=== PATIENT | male | born 1940 | race Caucasian/White ===

== ENCOUNTER 2024-05-05 18:31 | Inpatient (IN) | payer MEDICARE, BC ==
[~2024-05-05] VITALS: Ht 172.7 cm; Wt 74.8 kg
[2024-05-05 19:00] VITALS: O2SAT 95
[2024-05-05] MEDS: IPRATROPIUM BROMIDE 0.5 MG/2.5 ML NEBU NEB ONE (19:00)
[2024-05-05] MEDS: ALBUTEROL SULFATE 2.5 MG/3 ML NEBU NEB ONE (19:00)
[2024-05-05] MEDS ORDERED: methylPREDNISolone SOD SUCC 125 MG/2 ML VIAL ONE (19:05)
[2024-05-05 19:12] VITALS: O2SAT 95
[2024-05-05] MEDS: methylPREDNISolone SOD SUCC 125 MG/2 ML VIAL IV ONE (19:12)
[2024-05-05] MEDS ORDERED: IPRATROPIUM BROMIDE 0.5 MG/2.5 ML NEBU ONE (19:12)
[2024-05-05] MEDS ORDERED: ALBUTEROL SULFATE 2.5 MG/3 ML NEBU ONE (19:12)
[2024-05-05] MEDS ORDERED: levoFLOXacin 750MG/D5W 150 ML IV ONE (19:13)
[2024-05-05] MEDS: levoFLOXacin 750 MG/D5W 150 ML PIGGYBACK IV ONE (19:17)
[2024-05-05] MEDS ORDERED: AMIO200T5 PO (19:18)
[2024-05-05] MEDS ORDERED: PANT40TA49 PO (19:18)
[2024-05-05] MEDS ORDERED: ALLO300T2 PO (19:18)
[2024-05-05] MEDS ORDERED: FENO150C4 PO (19:18)
[2024-05-05] MEDS ORDERED: AMLO5TAB4 PO (19:18)
[2024-05-05] MEDS ORDERED: PREG50CA PO (19:18)
[2024-05-05] MEDS ORDERED: ESCI20TA PO (19:18)
[2024-05-05] MEDS ORDERED: TAMS-3 PO (19:18)
[2024-05-05] MEDS ORDERED: LEVO150T8 PO (19:18)
[2024-05-05] MEDS ORDERED: NIFE20CA8 PO (19:18)
[2024-05-05] MEDS ORDERED: METH10TA4 PO (19:18)
[2024-05-05] MEDS ORDERED: GLIP5TAB13 PO (19:18)
[2024-05-05] MEDS ORDERED: [UNRECOGNIZED DRUG - CODE] PO (19:18)
[2024-05-05 19:25] VITALS: O2SAT 95
[2024-05-05 19:29] LABS: BASOPHILS % (AUTO) 0.2 % (0.0-2.0); DIFFERENTIAL COMMENT 0; EOSINOPHILS % (AUTO) 0.4 % (0.0-7.0); HEMATOCRIT 36.7 % (36.7-47.1); LYMPHOCYTES # (AUTO) 0.4 K/uL (0.8-4.8); LYMPHOCYTES % (AUTO) 5.6 % (20.5-51.5); MEAN CORPUSCULAR HEMOGLOBIN 33.7 uug (23.8-33.4); MEAN CORPUSCULAR HGB CONC 33 g/dL (32.5-36.3); MEAN CORPUSCULAR VOLUME 103.1 fL (73.0-96.2); MONOCYTES # (AUTO) 0.3 K/uL (0.1-1.30); MONOCYTES % (AUTO) 3.6 % (0.0-11.0); NEUTROPHILS # (AUTO) 6.6 K/uL (1.8-8.9); NEUTROPHILS % (AUTO) 90.2 % (38.5-71.5); PLATELET COUNT (AUTO) 238 K/uL (152-348); RED BLOOD CELL COUNT(AUTO) 3.56 MIL/uL (4.06-5.63); RED CELL DISTRIBUTION WIDTH 16.2 % (12.1-16.2); WHITE BLOOD COUNT (AUTO) 7.4 K/uL (3.6-10.2)
[2024-05-05 19:37] LABS: CALCIUM 8.8 mg/dL (8.5-10.1); CARBON DIOXIDE 29 mmol/L (21-32); CHLORIDE 108 mmol/L (98-107); CREATININE 2.3 mg/dL (0.6-1.3); GLUCOSE 94 mg/dL (74-106); POTASSIUM 3.5 mmol/L (3.5-5.1); SODIUM SERUM 146 mmol/L (136-145); UREA NITROGEN, BLOOD 45 mg/dL (7-18)
[2024-05-05 19:47] LABS: ABG BASE EXCESS -2.3 mmol/L (-2.0-3.0); ABG HCO3 20.7 mmol/L (21.0-28.0); ABG PH 7.457 (7.350-7.450); ABG SITE LEFT RADIAL; ABG TOTAL HEMOGLOBIN 11.5 G/dL (13.5-17.5); AaDO2 95.7 mmHg; COHb 0.9 % (0.5-1.5); MetHb 0.3 % (0.0-1.5); O2Hb 93.1 % (94.0-98.0)
[2024-05-05 19:51] LABS: ALANINE AMINOTRANSFERASE 54 U/L (16-63); ALBUMIN 2.4 g/dL (3.4-5.0); ALKALINE PHOSPHATASE 52 U/L (50-136); ASPARTATE AMINOTRANSFERASE 91 U/L (15-37); BILIRUBIN,DIRECT 0.3 mg/dL (0.0-0.2); BILIRUBIN,TOTAL 0.6 mg/dL (0.2-1.0)
[2024-05-05 20:17] LABS: NT-PRO BNP 45449 pg/mL (0-125)
[2024-05-05 20:36] LABS: BAND % (MANUAL) 7 % (0-10); LYMPHOCYTES % (MANUAL) 2 % (20-40); MONOCYTES % (MANUAL) 2 % (2-10); NEUTROPHILS % (MANUAL) 89 % (42-75)
[2024-05-05 20:37] LABS: ANISOCYTOSIS 1+; PLATELET ESTIMATE ADEQU; TEAR DROP CELLS OCC
[2024-05-05] MEDS ORDERED: ENOXAPARIN SODIUM 80 MG/0.8 ML DISP.SYRIN SQ ONE (20:42)
[2024-05-05] MEDS ORDERED: NITROGLYCERIN OINT 1 GM PACKET TP ONE (20:42)
[2024-05-05] MEDS ORDERED: ASPIRIN 81 MG TAB.CHEW ONE (20:42)
[2024-05-05] MEDS: ASPIRIN 81 MG TAB.CHEW PO ONE (20:55)
[2024-05-05] MEDS: NITROGLYCERIN OINT 1 GM PACKET TP ONE (20:55)
[2024-05-05] MEDS: ENOXAPARIN SODIUM 80 MG/0.8 ML DISP.SYRIN SQ ONE (20:55)
[2024-05-05] MEDS ORDERED: MAGNESIUM HYDROXIDE 30 ML LIQUID UDC PO PRN (21:15)
[2024-05-05] MEDS ORDERED: ONDANSETRON 4 MG/2 ML VIAL IV PRN (21:15)
[2024-05-05] MEDS ORDERED: HEPARIN/D5W DRIP 500 ML IV PRN (21:15)
[2024-05-05] MEDS ORDERED: DEXTROSE 50% 50 ML DISP.SYRIN IV PRN (21:15)
[2024-05-05] MEDS ORDERED: IPRATROPIUM BROMIDE 0.5 MG/2.5 ML NEBU NEB PRN (21:45)
[2024-05-05] MEDS ORDERED: ALBUTEROL SULFATE 1.25 MG/3 ML NEBU NEB PRN (21:45)
[2024-05-05] MEDS ORDERED: METHYLPHENIDATE HCL 10 MG TABLET PO PRN (22:30)
[2024-05-05] MEDS: FUROSEMIDE 40 MG/4 ML VIAL IV ONE (23:45)
[2024-05-06] VITALS (26 sets, daily range): BP systolic 94–145; BP diastolic 60–97; TEMP 97.4–98.7; O2SAT 89–98
[2024-05-06] MEDS ORDERED: FUROSEMIDE 40 MG/4 ML VIAL IV SCH (02:30)
[2024-05-06] MEDS: FUROSEMIDE 40 MG/4 ML VIAL IV ONE (03:53)
[2024-05-06] MEDS ORDERED: LEVOTHYROXINE SODIUM 150 MCG TABLET PO SCH ×3 (07:00→09:00)
[2024-05-06 07:49] LABS: BASOPHILS % (AUTO) 0.2 % (0.0-2.0); DIFFERENTIAL COMMENT 0; HEMATOCRIT 33.9 % (36.7-47.1); HEMOGLOBIN 11.4 g/dL (12.5-16.3); LYMPHOCYTES # (AUTO) 0.3 K/uL (0.8-4.8); LYMPHOCYTES % (AUTO) 4.9 % (20.5-51.5); MEAN CORPUSCULAR HEMOGLOBIN 34.2 uug (23.8-33.4); MEAN CORPUSCULAR HGB CONC 34 g/dL (32.5-36.3); MEAN CORPUSCULAR VOLUME 101.5 fL (73.0-96.2); MONOCYTES # (AUTO) 0.1 K/uL (0.1-1.30); MONOCYTES % (AUTO) 1.5 % (0.0-11.0); NEUTROPHILS # (AUTO) 6.3 K/uL (1.8-8.9); NEUTROPHILS % (AUTO) 93.4 % (38.5-71.5); PLATELET COUNT (AUTO) 223 K/uL (152-348); RED BLOOD CELL COUNT(AUTO) 3.34 MIL/uL (4.06-5.63); RED CELL DISTRIBUTION WIDTH 15.8 % (12.1-16.2); WHITE BLOOD COUNT (AUTO) 6.7 K/uL (3.6-10.2)
[2024-05-06 08:01] LABS: MAGNESIUM 2.5 mg/dL (1.8-2.4); PHOSPHOROUS 4.8 mg/dL (2.5-4.9)
[2024-05-06 08:03] LABS: CALCIUM 8.8 mg/dL (8.5-10.1); CARBON DIOXIDE 30 mmol/L (21-32); CHLORIDE 112 mmol/L (98-107); CREATININE 2.2 mg/dL (0.6-1.3); POTASSIUM 4.5 mmol/L (3.5-5.1); SODIUM SERUM 150 mmol/L (136-145); UREA NITROGEN, BLOOD 49 mg/dL (7-18)
[2024-05-06 08:06] LABS: GLUCOSE 40 mg/dL (74-106)
[2024-05-06] MEDS ORDERED: ALLOPURINOL 300 MG TABLET PO SCH (09:00)
[2024-05-06] MEDS ORDERED: FENOFIBRATE 150 MG PO SCH (09:00)
[2024-05-06] MEDS ORDERED: HEPARIN/D5W DRIP 500 ML IV PRN (09:00)
[2024-05-06] MEDS: AMLODIPINE 5 MG TABLET PO SCH (09:08)
[2024-05-06] MEDS: ESCITALOPRAM OXALATE 10 MG TABLET PO SCH (09:08)
[2024-05-06] MEDS: PANTOPRAZOLE SODIUM 40 MG VIAL IV SCH (09:08)
[2024-05-06] MEDS: AMIODARONE HCL 200 MG TABLET PO SCH (09:08)
[2024-05-06] MEDS: BLOOD SUGAR DIAGNOSTIC 1 EACH STRIP VI SCH (09:26)
[2024-05-06] MEDS: DEXAMETHASONE SOD PHOSPHATE 4 MG INJ IV SCH (09:26)
[2024-05-06] MEDS: ACETAMINOPHEN 325 MG TABLET PO PRN (10:16)
[2024-05-06 11:08] LABS: BAND % (MANUAL) 6 % (0-10); LYMPHOCYTES % (MANUAL) 11 % (20-40); METAMYELOCYTES % 1 % (0-1); MONOCYTES % (MANUAL) 2 % (2-10); NEUTROPHILS % (MANUAL) 80 % (42-75)
[2024-05-06 11:09] LABS: ANISOCYTOSIS 1+; PLATELET ESTIMATE ADEQUATE
[2024-05-06] MEDS ORDERED: FENO145T21 PO (12:06)
[2024-05-06] MEDS ORDERED: LEVO200T9 PO (12:06)
[2024-05-06] MEDS ORDERED: LIDO30AD10 TD (12:10)
[2024-05-06] MEDS: PREGABALIN 25 MG CAPSULE PO SCH (17:49)
[2024-05-06] MEDS ORDERED: levoFLOXacin 750MG/D5W 750 MG in PREMIXED 1 EACH IV SCH (20:00)
[2024-05-06] MEDS: CEFTRIAXONE 1 G in IV DEXTROSE 5% 50 ML IV SCH (20:08)
[2024-05-06] MEDS: TAMSULOSIN HCL 0.4 MG CAP.SR.24H PO SCH (21:42)
[2024-05-06] MEDS: DOXYCYCLINE HYCLATE IV 100 MG in IV DEXTROSE 5% 100 ML IV SCH (21:42)
[2024-05-06] MEDS: INSULIN REGULAR, HUMAN 1000 UNIT/10 ML VIAL SQ PRN (21:52)
[2024-05-07] VITALS (28 sets, daily range): BP systolic 93–143; BP diastolic 59–116; TEMP 97.7–98.4; O2SAT 83–98
[2024-05-07 05:11] LABS: BASOPHILS # (AUTO) 0.1 K/UL (0.0-0.2); BASOPHILS % (AUTO) 0.7 % (0.0-2.0); HEMATOCRIT 33.1 % (36.7-47.1); HEMOGLOBIN 11.1 g/dL (12.5-16.3); LYMPHOCYTES # (AUTO) 0.5 K/uL (0.8-4.8); LYMPHOCYTES % (AUTO) 6.7 % (20.5-51.5); MEAN CORPUSCULAR HEMOGLOBIN 33.6 uug (23.8-33.4); MEAN CORPUSCULAR HGB CONC 33 g/dL (32.5-36.3); MEAN CORPUSCULAR VOLUME 100.5 fL (73.0-96.2); MONOCYTES # (AUTO) 0.2 K/uL (0.1-1.30); MONOCYTES % (AUTO) 3.2 % (0.0-11.0); NEUTROPHILS # (AUTO) 6.6 K/uL (1.8-8.9); NEUTROPHILS % (AUTO) 89.4 % (38.5-71.5); PLATELET COUNT (AUTO) 221 K/uL (152-348); RED BLOOD CELL COUNT(AUTO) 3.29 MIL/uL (4.06-5.63); RED CELL DISTRIBUTION WIDTH 15.5 % (12.1-16.2); WHITE BLOOD COUNT (AUTO) 7.4 K/uL (3.6-10.2)
[2024-05-07 05:28] LABS: ALANINE AMINOTRANSFERASE 44 U/L (16-63); ALBUMIN 2.1 g/dL (3.4-5.0); ALKALINE PHOSPHATASE 41 U/L (50-136); ASPARTATE AMINOTRANSFERASE 53 U/L (15-37); BILIRUBIN,DIRECT 0.2 mg/dL (0.0-0.2); BILIRUBIN,TOTAL 0.4 mg/dL (0.2-1.0); CALCIUM 7.8 mg/dL (8.5-10.1); CARBON DIOXIDE 26 mmol/L (21-32); CHLORIDE 108 mmol/L (98-107); CHOLESTEROL 130 mg/dL (<200); CREATININE 2.1 mg/dL (0.6-1.3); GLUCOSE 173 mg/dL (74-106); HDL CHOLESTEROL 30 mg/dL (40-60); MAGNESIUM 2.5 mg/dL (1.8-2.4); PHOSPHOROUS 3.7 mg/dL (2.5-4.9); POTASSIUM 4.2 mmol/L (3.5-5.1); SODIUM SERUM 144 mmol/L (136-145); TOTAL PROTEIN, SERUM 5.3 g/dL (6.4-8.2); TRIGLYCERIDES 167 MG/DL (30-150); UREA NITROGEN, BLOOD 51 mg/dL (7-18)
[2024-05-07 07:02] LABS: THYROID STIMULATING HORMONE 0.548 mIU/mL (0.358-3.740)
[2024-05-07] MEDS: LEVOTHYROXINE SODIUM 200 MCG TABLET PO SCH (07:10)
[2024-05-07 08:15] LABS: CREATINE KINASE, TOTAL < 7 U/L (39-308)
[2024-05-07] MEDS: ASPIRIN 81 MG TAB.CHEW PO SCH (09:37)
[2024-05-07] MEDS: FENOFIBRATE NANOCRYSTALLIZED 145 MG TABLET PO SCH (09:38)
[2024-05-07] MEDS: ALBUTEROL SULFATE 1.25 MG/3 ML NEBU NEB SCH (13:13)
[2024-05-07] MEDS: IPRATROPIUM BROMIDE 0.5 MG/2.5 ML NEBU NEB SCH (13:13)
[2024-05-07] MEDS: ACETYLCYSTEINE 20% 800 MG/4 ML VIAL NEB SCH (15:28)
[2024-05-07] MEDS: IV 1/2NS 1000 ML 1,000 ML IV PRN (15:46)
[2024-05-07] MEDS ORDERED: levoFLOXacin 750 MG/D5W 150 ML PIGGYBACK IV SCH (21:00)
[2024-05-07 21:23] LABS: *BILIRUBIN,URIN NEGATIVE (NEGATIVE); *BLOOD, URINE 2+ (NEGATIVE); *CLARITY,URINE CLEAR (CLEAR); *COLOR,URINE YELLOW (YELLOW); *KETONES,URINE TRACE (NEGATIVE); *PROTEIN,URINE 1+ (NEGATIVE); *UROBILINOGEN,URINE 0.2 E.U./dl (NORMAL); LEUKOCYTE ESTERASE ,URINE NEGATIVE (NEGATIVE); NITRITE, URINE NEGATIVE (NEGATIVE); UGLUCOSE 2+ (NEGATIVE)
[2024-05-07 21:35] LABS: *CREATININE,URINE 79.7 mg/dL (30-125); *URINE TOTAL PROTEIN RANDOM 53.4 mg/dL (<150/24HR)
[2024-05-07 21:48] LABS: BACTERIA,URINE FEW /HPF (NONE SEEN); SQUAMOUS EPITHELIAL CELL,UR FEW /HPF (NONE SEEN); WBC,URINE 0-3 /HPF (0-3)
[2024-05-07] MEDS: CLONAZEPAM 0.5 MG TABLET PO PRN (22:43)
[2024-05-07] MEDS: MIRALAX 17 GM POWD.PACK PO PRN (23:01)
[2024-05-08] VITALS (21 sets, daily range): BP systolic 98–124; BP diastolic 70–84; TEMP 97.6–98.1; O2SAT 95–98
[2024-05-08 05:18] LABS: BASOPHILS % (AUTO) 0.4 % (0.0-2.0); HEMATOCRIT 32.2 % (36.7-47.1); HEMOGLOBIN 10.9 g/dL (12.5-16.3); LYMPHOCYTES # (AUTO) 0.5 K/uL (0.8-4.8); LYMPHOCYTES % (AUTO) 6.1 % (20.5-51.5); MEAN CORPUSCULAR HGB CONC 34 g/dL (32.5-36.3); MEAN CORPUSCULAR VOLUME 100.6 fL (73.0-96.2); MONOCYTES # (AUTO) 0.2 K/uL (0.1-1.30); NEUTROPHILS # (AUTO) 6.9 K/uL (1.8-8.9); NEUTROPHILS % (AUTO) 90.5 % (38.5-71.5); PLATELET COUNT (AUTO) 218 K/uL (152-348); RED CELL DISTRIBUTION WIDTH 15.9 % (12.1-16.2); WHITE BLOOD COUNT (AUTO) 7.6 K/uL (3.6-10.2)
[2024-05-08 05:26] LABS: DIFFERENTIAL COMMENT 1
[2024-05-08 05:52] LABS: ALANINE AMINOTRANSFERASE 40 U/L (16-63); ALKALINE PHOSPHATASE 39 U/L (50-136); ASPARTATE AMINOTRANSFERASE 38 U/L (15-37); BILIRUBIN,TOTAL 0.4 mg/dL (0.2-1.0); CALCIUM 7.9 mg/dL (8.5-10.1); CARBON DIOXIDE 26 mmol/L (21-32); CHLORIDE 107 mmol/L (98-107); CREATININE 1.9 mg/dL (0.6-1.3); GLUCOSE 162 mg/dL (74-106); MAGNESIUM 2.7 mg/dL (1.8-2.4); PHOSPHOROUS 2.9 mg/dL (2.5-4.9); SODIUM SERUM 142 mmol/L (136-145); THYROID STIMULATING HORMONE 0.462 mIU/mL (0.358-3.740); TOTAL PROTEIN, SERUM 5.1 g/dL (6.4-8.2); UREA NITROGEN, BLOOD 48 mg/dL (7-18)
[2024-05-08] MEDS: PANTOPRAZOLE SODIUM 40 MG TABLET.DR PO SCH (07:07)
[2024-05-08 09:10] LABS: PTH, INTACT 79 pg/mL (15-65)
[2024-05-09] VITALS (17 sets, daily range): BP systolic 113–133; BP diastolic 60–84; TEMP 97–98.3; O2SAT 9–99
[2024-05-09 07:37] LABS: BASOPHILS % (AUTO) 0.2 % (0.0-2.0); HEMATOCRIT 34.3 % (36.7-47.1); HEMOGLOBIN 11.5 g/dL (12.5-16.3); LYMPHOCYTES # (AUTO) 0.6 K/uL (0.8-4.8); LYMPHOCYTES % (AUTO) 6.4 % (20.5-51.5); MEAN CORPUSCULAR HGB CONC 34 g/dL (32.5-36.3); MEAN CORPUSCULAR VOLUME 101.1 fL (73.0-96.2); MONOCYTES # (AUTO) 0.3 K/uL (0.1-1.30); NEUTROPHILS # (AUTO) 8.4 K/uL (1.8-8.9); NEUTROPHILS % (AUTO) 90.4 % (38.5-71.5); PLATELET COUNT (AUTO) 219 K/uL (152-348); RED BLOOD CELL COUNT(AUTO) 3.39 MIL/uL (4.06-5.63); RED CELL DISTRIBUTION WIDTH 15.5 % (12.1-16.2); WHITE BLOOD COUNT (AUTO) 9.3 K/uL (3.6-10.2)
[2024-05-09 07:51] LABS: DIFFERENTIAL COMMENT 1
[2024-05-09 08:02] LABS: CALCIUM 7.7 mg/dL (8.5-10.1); CARBON DIOXIDE 25 mmol/L (21-32); CHLORIDE 106 mmol/L (98-107); CREATININE 1.5 mg/dL (0.6-1.3); GLUCOSE 118 mg/dL (74-106); MAGNESIUM 2.4 mg/dL (1.8-2.4); PHOSPHOROUS 2.5 mg/dL (2.5-4.9); POTASSIUM 4.1 mmol/L (3.5-5.1); SODIUM SERUM 140 mmol/L (136-145); UREA NITROGEN, BLOOD 44 mg/dL (7-18)
[2024-05-09] MEDS: BENZONATATE 100 MG CAPSULE PO SCH (17:07)
[2024-05-10] VITALS (18 sets, daily range): BP systolic 108–148; BP diastolic 66–81; TEMP 96.7–98; O2SAT 90–97
[2024-05-10 07:05] LABS: BASOPHILS % (AUTO) 0.3 % (0.0-2.0); EOSINOPHILS % (AUTO) 0.1 % (0.0-7.0); HEMATOCRIT 35.1 % (36.7-47.1); HEMOGLOBIN 11.8 g/dL (12.5-16.3); LYMPHOCYTES # (AUTO) 0.8 K/uL (0.8-4.8); LYMPHOCYTES % (AUTO) 6.2 % (20.5-51.5); MEAN CORPUSCULAR HEMOGLOBIN 33.6 uug (23.8-33.4); MEAN CORPUSCULAR HGB CONC 34 g/dL (32.5-36.3); MEAN CORPUSCULAR VOLUME 100.3 fL (73.0-96.2); MONOCYTES # (AUTO) 0.4 K/uL (0.1-1.30); MONOCYTES % (AUTO) 3.2 % (0.0-11.0); NEUTROPHILS # (AUTO) 11.6 K/uL (1.8-8.9); NEUTROPHILS % (AUTO) 90.2 % (38.5-71.5); PLATELET COUNT (AUTO) 253 K/uL (152-348); RED BLOOD CELL COUNT(AUTO) 3.51 MIL/uL (4.06-5.63); WHITE BLOOD COUNT (AUTO) 12.9 K/uL (3.6-10.2)
[2024-05-10 07:23] LABS: DIFFERENTIAL COMMENT 1
[2024-05-10 07:26] LABS: CALCIUM 7.7 mg/dL (8.5-10.1); CARBON DIOXIDE 25 mmol/L (21-32); CHLORIDE 105 mmol/L (98-107); CREATININE 1.6 mg/dL (0.6-1.3); GLUCOSE 126 mg/dL (74-106); MAGNESIUM 2.8 mg/dL (1.8-2.4); PHOSPHOROUS 2.5 mg/dL (2.5-4.9); POTASSIUM 4.3 mmol/L (3.5-5.1); SODIUM SERUM 138 mmol/L (136-145); UREA NITROGEN, BLOOD 42 mg/dL (7-18)
[2024-05-10 13:07] LABS: LYMPHOCYTES % (MANUAL) 6 % (20-40); NEUTROPHILS % (MANUAL) 90 % (42-75)
[2024-05-10 13:08] LABS: EOSINOPHILS % (MANUAL) 1 % (0-8); MONOCYTES % (MANUAL) 3 % (2-10); PLATELET ESTIMATE ADEQUATE
[2024-05-11] VITALS (13 sets, daily range): TEMP 97–97.8; O2SAT 93–98
[2024-05-11 07:15] LABS: BASOPHILS # (AUTO) 0.1 K/UL (0.0-0.2); BASOPHILS % (AUTO) 0.5 % (0.0-2.0); EOSINOPHILS % (AUTO) 0.1 % (0.0-7.0); HEMATOCRIT 37.4 % (36.7-47.1); HEMOGLOBIN 12.4 g/dL (12.5-16.3); LYMPHOCYTES # (AUTO) 0.7 K/uL (0.8-4.8); LYMPHOCYTES % (AUTO) 6.7 % (20.5-51.5); MEAN CORPUSCULAR HEMOGLOBIN 33.1 uug (23.8-33.4); MEAN CORPUSCULAR HGB CONC 33 g/dL (32.5-36.3); MEAN CORPUSCULAR VOLUME 99.9 fL (73.0-96.2); MONOCYTES # (AUTO) 0.4 K/uL (0.1-1.30); MONOCYTES % (AUTO) 3.4 % (0.0-11.0); NEUTROPHILS # (AUTO) 9.9 K/uL (1.8-8.9); NEUTROPHILS % (AUTO) 89.3 % (38.5-71.5); PLATELET COUNT (AUTO) 259 K/uL (152-348); RED BLOOD CELL COUNT(AUTO) 3.74 MIL/uL (4.06-5.63); WHITE BLOOD COUNT (AUTO) 11.1 K/uL (3.6-10.2)
[2024-05-11 07:32] LABS: CALCIUM 7.6 mg/dL (8.5-10.1); CARBON DIOXIDE 24 mmol/L (21-32); CHLORIDE 107 mmol/L (98-107); CREATININE 1.4 mg/dL (0.6-1.3); GLUCOSE 106 mg/dL (74-106); MAGNESIUM 2.7 mg/dL (1.8-2.4); PHOSPHOROUS 2.4 mg/dL (2.5-4.9); POTASSIUM 4.3 mmol/L (3.5-5.1); SODIUM SERUM 140 mmol/L (136-145); UREA NITROGEN, BLOOD 38 mg/dL (7-18)
[2024-05-11 07:39] LABS: DIFFERENTIAL COMMENT 1
[2024-05-11] MEDS: FUROSEMIDE 20 MG/2 ML VIAL IV SCH (09:29)
[2024-05-11] MEDS: REMDESIVIR (CHARGED) 200 MG in IV NORMAL SALINE 210 ML IV ONE (09:30)
[2024-05-11 14:12] LABS: A/G RATIO 0.9 (0.7-1.7); ALBUMIN 2.2 g/dL (2.9-4.4); ALPHA-1-GLOBULIN 0.3 g/dL (0.0-0.4); BETA GLOBULIN 0.8 g/dL (0.7-1.3); GAMMA GLOBULIN 0.4 g/dL (0.4-1.8); GLOBULIN, TOTAL 2.5 g/dL (2.2-3.9); M-SPIKE Not Observed g/dL (Not Observed); PROTEIN, TOTAL 4.7 g/dL (6.0-8.5)
[2024-05-11] MEDS: NEUTRA PHOS PACKET PO ONE (17:02)
[2024-05-12] VITALS (14 sets, daily range): BP systolic 112–123; BP diastolic 66–76; TEMP 97.5–97.9; O2SAT 50–99
[2024-05-12 07:16] LABS: BASOPHILS % (AUTO) 0.5 % (0.0-2.0); EOSINOPHILS % (AUTO) 0.1 % (0.0-7.0); HEMATOCRIT 35.5 % (36.7-47.1); HEMOGLOBIN 12.1 g/dL (12.5-16.3); LYMPHOCYTES # (AUTO) 0.7 K/uL (0.8-4.8); LYMPHOCYTES % (AUTO) 7.1 % (20.5-51.5); MEAN CORPUSCULAR HGB CONC 34 g/dL (32.5-36.3); MEAN CORPUSCULAR VOLUME 99.8 fL (73.0-96.2); MONOCYTES # (AUTO) 0.3 K/uL (0.1-1.30); MONOCYTES % (AUTO) 3.5 % (0.0-11.0); NEUTROPHILS # (AUTO) 8.3 K/uL (1.8-8.9); NEUTROPHILS % (AUTO) 88.8 % (38.5-71.5); PLATELET COUNT (AUTO) 250 K/uL (152-348); RED BLOOD CELL COUNT(AUTO) 3.56 MIL/uL (4.06-5.63); RED CELL DISTRIBUTION WIDTH 15.8 % (12.1-16.2); WHITE BLOOD COUNT (AUTO) 9.4 K/uL (3.6-10.2)
[2024-05-12 07:29] LABS: CALCIUM 7.1 mg/dL (8.5-10.1); CARBON DIOXIDE 29 mmol/L (21-32); CHLORIDE 109 mmol/L (98-107); CREATININE 1.4 mg/dL (0.6-1.3); GLUCOSE 78 mg/dL (74-106); MAGNESIUM 2.3 mg/dL (1.8-2.4); PHOSPHOROUS 3.3 mg/dL (2.5-4.9); SODIUM SERUM 143 mmol/L (136-145); UREA NITROGEN, BLOOD 37 mg/dL (7-18)
[2024-05-12 07:33] LABS: DIFFERENTIAL COMMENT 1
[2024-05-12] MEDS: REMDESIVIR (CHARGED) 100 MG in IV NORMAL SALINE 100 ML IV SCH (09:17)
[2024-05-12] MEDS: FUROSEMIDE 20 MG/2 ML VIAL IV SCH (10:20)
[2024-05-12 12:40] LABS: ANISOCYTOSIS 1+; BAND % (MANUAL) 2 % (0-10); LYMPHOCYTES % (MANUAL) 4 % (20-40); MONOCYTES % (MANUAL) 3 % (2-10); NEUTROPHILS % (MANUAL) 91 % (42-75); PLATELET ESTIMATE ADEQUATE
[2024-05-12] MEDS ORDERED: GUAIFENESIN/DEXTROMETHORPHAN 5 ML UDC PO PRN (19:15)
[2024-05-13] VITALS (19 sets, daily range): BP systolic 107–125; BP diastolic 65–79; TEMP 97.7–98.5; O2SAT 93–100
[2024-05-13 07:07] LABS: BASOPHILS % (AUTO) 0.3 % (0.0-2.0); EOSINOPHILS % (AUTO) 0.1 % (0.0-7.0); HEMATOCRIT 37.3 % (36.7-47.1); HEMOGLOBIN 12.8 g/dL (12.5-16.3); LYMPHOCYTES # (AUTO) 0.6 K/uL (0.8-4.8); LYMPHOCYTES % (AUTO) 6.3 % (20.5-51.5); MEAN CORPUSCULAR HEMOGLOBIN 34.4 uug (23.8-33.4); MEAN CORPUSCULAR HGB CONC 34 g/dL (32.5-36.3); MEAN CORPUSCULAR VOLUME 100.6 fL (73.0-96.2); MONOCYTES # (AUTO) 0.3 K/uL (0.1-1.30); NEUTROPHILS # (AUTO) 9.1 K/uL (1.8-8.9); NEUTROPHILS % (AUTO) 90.3 % (38.5-71.5); PLATELET COUNT (AUTO) 283 K/uL (152-348); RED BLOOD CELL COUNT(AUTO) 3.71 MIL/uL (4.06-5.63); RED CELL DISTRIBUTION WIDTH 15.8 % (12.1-16.2)
[2024-05-13 07:21] LABS: DIFFERENTIAL COMMENT 1
[2024-05-13 07:37] LABS: ALANINE AMINOTRANSFERASE 40 U/L (16-63); ALBUMIN 2.2 g/dL (3.4-5.0); ALKALINE PHOSPHATASE 54 U/L (50-136); ASPARTATE AMINOTRANSFERASE 30 U/L (15-37); BILIRUBIN,DIRECT 0.2 mg/dL (0.0-0.2); BILIRUBIN,TOTAL 0.5 mg/dL (0.2-1.0); CALCIUM 7.2 mg/dL (8.5-10.1); CARBON DIOXIDE 28 mmol/L (21-32); CHLORIDE 107 mmol/L (98-107); CREATININE 1.4 mg/dL (0.6-1.3); GLUCOSE 126 mg/dL (74-106); SODIUM SERUM 144 mmol/L (136-145); TOTAL PROTEIN, SERUM 5.4 g/dL (6.4-8.2); UREA NITROGEN, BLOOD 40 mg/dL (7-18)
[2024-05-13 07:38] LABS: POTASSIUM 4.5 mmol/L (3.5-5.1)
[2024-05-13] MEDS: DOXYCYCLINE HYCLATE 100 MG TABLET PO SCH (21:10)
[2024-05-14] VITALS (20 sets, daily range): BP systolic 100–134; BP diastolic 61–76; TEMP 97.6–98.4; O2SAT 90–100
[2024-05-14 06:51] LABS: BASOPHILS % (AUTO) 0.1 % (0.0-2.0); EOSINOPHILS % (AUTO) 0.1 % (0.0-7.0); HEMATOCRIT 36.6 % (36.7-47.1); HEMOGLOBIN 12.4 g/dL (12.5-16.3); LYMPHOCYTES # (AUTO) 0.6 K/uL (0.8-4.8); LYMPHOCYTES % (AUTO) 6.3 % (20.5-51.5); MEAN CORPUSCULAR HEMOGLOBIN 33.9 uug (23.8-33.4); MEAN CORPUSCULAR HGB CONC 34 g/dL (32.5-36.3); MEAN CORPUSCULAR VOLUME 100.2 fL (73.0-96.2); MONOCYTES # (AUTO) 0.3 K/uL (0.1-1.30); MONOCYTES % (AUTO) 3.6 % (0.0-11.0); NEUTROPHILS # (AUTO) 8.4 K/uL (1.8-8.9); NEUTROPHILS % (AUTO) 89.9 % (38.5-71.5); PLATELET COUNT (AUTO) 266 K/uL (152-348); RED BLOOD CELL COUNT(AUTO) 3.65 MIL/uL (4.06-5.63); WHITE BLOOD COUNT (AUTO) 9.4 K/uL (3.6-10.2)
[2024-05-14 07:09] LABS: DIFFERENTIAL COMMENT 1
[2024-05-14 07:15] LABS: ALANINE AMINOTRANSFERASE 40 U/L (16-63); ALBUMIN 2.1 g/dL (3.4-5.0); ALKALINE PHOSPHATASE 56 U/L (50-136); ASPARTATE AMINOTRANSFERASE 18 U/L (15-37); BILIRUBIN,DIRECT 0.3 mg/dL (0.0-0.2); BILIRUBIN,TOTAL 0.6 mg/dL (0.2-1.0); CALCIUM 7.4 mg/dL (8.5-10.1); CARBON DIOXIDE 27 mmol/L (21-32); CHLORIDE 109 mmol/L (98-107); CREATININE 1.2 mg/dL (0.6-1.3); GLUCOSE 113 mg/dL (74-106); POTASSIUM 3.9 mmol/L (3.5-5.1); SODIUM SERUM 144 mmol/L (136-145); TOTAL PROTEIN, SERUM 4.9 g/dL (6.4-8.2); UREA NITROGEN, BLOOD 37 mg/dL (7-18)
[2024-05-14 10:02] LABS: ANISOCYTOSIS 1+; BAND % (MANUAL) 3 % (0-10); EOSINOPHILS % (MANUAL) 1 % (0-8); LYMPHOCYTES % (MANUAL) 4 % (20-40); MONOCYTES % (MANUAL) 6 % (2-10); NEUTROPHILS % (MANUAL) 86 % (42-75); PLATELET ESTIMATE ADEQUATE
[2024-05-15] VITALS (16 sets, daily range): BP systolic 111–151; BP diastolic 60–72; TEMP 97.5–98.4; O2SAT 92–98
[2024-05-15 07:45] LABS: BASOPHILS % (AUTO) 0.1 % (0.0-2.0); EOSINOPHILS % (AUTO) 0.1 % (0.0-7.0); HEMATOCRIT 37.5 % (36.7-47.1); HEMOGLOBIN 12.7 g/dL (12.5-16.3); LYMPHOCYTES # (AUTO) 0.6 K/uL (0.8-4.8); LYMPHOCYTES % (AUTO) 6.7 % (20.5-51.5); MEAN CORPUSCULAR HEMOGLOBIN 33.7 uug (23.8-33.4); MEAN CORPUSCULAR HGB CONC 34 g/dL (32.5-36.3); MEAN CORPUSCULAR VOLUME 99.9 fL (73.0-96.2); MONOCYTES # (AUTO) 0.3 K/uL (0.1-1.30); NEUTROPHILS # (AUTO) 7.7 K/uL (1.8-8.9); NEUTROPHILS % (AUTO) 89.1 % (38.5-71.5); PLATELET COUNT (AUTO) 263 K/uL (152-348); RED BLOOD CELL COUNT(AUTO) 3.75 MIL/uL (4.06-5.63); RED CELL DISTRIBUTION WIDTH 15.8 % (12.1-16.2); WHITE BLOOD COUNT (AUTO) 8.7 K/uL (3.6-10.2)
[2024-05-15 07:51] LABS: DIFFERENTIAL COMMENT 1
[2024-05-15 07:59] LABS: ALANINE AMINOTRANSFERASE 39 U/L (16-63); ALBUMIN 2.3 g/dL (3.4-5.0); ALKALINE PHOSPHATASE 62 U/L (50-136); ASPARTATE AMINOTRANSFERASE 22 U/L (15-37); BILIRUBIN,DIRECT 0.3 mg/dL (0.0-0.2); BILIRUBIN,TOTAL 0.7 mg/dL (0.2-1.0); CALCIUM 7.8 mg/dL (8.5-10.1); CARBON DIOXIDE 27 mmol/L (21-32); CHLORIDE 110 mmol/L (98-107); CREATININE 1.1 mg/dL (0.6-1.3); GLUCOSE 102 mg/dL (74-106); POTASSIUM 4.5 mmol/L (3.5-5.1); SODIUM SERUM 144 mmol/L (136-145); UREA NITROGEN, BLOOD 35 mg/dL (7-18)
[2024-05-15] MEDS: FUROSEMIDE 20 MG/2 ML VIAL IV SCH (11:43)
[2024-05-16] VITALS (15 sets, daily range): BP systolic 126–151; BP diastolic 54–73; TEMP 97.5–97.9; O2SAT 9–99
[2024-05-17] VITALS (13 sets, daily range): BP systolic 118–135; BP diastolic 61–78; TEMP 97.6–97.9; O2SAT 90–100
[2024-05-17 07:16] LABS: BASOPHILS % (AUTO) 0.3 % (0.0-2.0); EOSINOPHILS % (AUTO) 0.1 % (0.0-7.0); HEMATOCRIT 38.1 % (36.7-47.1); HEMOGLOBIN 12.8 g/dL (12.5-16.3); LYMPHOCYTES # (AUTO) 0.4 K/uL (0.8-4.8); LYMPHOCYTES % (AUTO) 4.4 % (20.5-51.5); MEAN CORPUSCULAR HEMOGLOBIN 33.6 uug (23.8-33.4); MEAN CORPUSCULAR HGB CONC 34 g/dL (32.5-36.3); MEAN CORPUSCULAR VOLUME 100.2 fL (73.0-96.2); MONOCYTES # (AUTO) 0.4 K/uL (0.1-1.30); MONOCYTES % (AUTO) 4.3 % (0.0-11.0); NEUTROPHILS # (AUTO) 9.2 K/uL (1.8-8.9); NEUTROPHILS % (AUTO) 90.9 % (38.5-71.5); PLATELET COUNT (AUTO) 241 K/uL (152-348); RED BLOOD CELL COUNT(AUTO) 3.81 MIL/uL (4.06-5.63); RED CELL DISTRIBUTION WIDTH 15.7 % (12.1-16.2); WHITE BLOOD COUNT (AUTO) 10.1 K/uL (3.6-10.2)
[2024-05-17 07:33] LABS: CALCIUM 8.4 mg/dL (8.5-10.1); CARBON DIOXIDE 29 mmol/L (21-32); CHLORIDE 109 mmol/L (98-107); CREATININE 1.4 mg/dL (0.6-1.3); GLUCOSE 151 mg/dL (74-106); MAGNESIUM 2.3 mg/dL (1.8-2.4); PHOSPHOROUS 3.4 mg/dL (2.5-4.9); POTASSIUM 4.3 mmol/L (3.5-5.1); SODIUM SERUM 145 mmol/L (136-145); UREA NITROGEN, BLOOD 43 mg/dL (7-18)
[2024-05-17 07:37] LABS: DIFFERENTIAL COMMENT 1
[2024-05-18] VITALS (14 sets, daily range): BP systolic 114–128; BP diastolic 61–67; TEMP 97.6–98.6; O2SAT 92–99
[2024-05-18 07:09] LABS: BASOPHILS % (AUTO) 0.2 % (0.0-2.0); EOSINOPHILS % (AUTO) 0.1 % (0.0-7.0); HEMOGLOBIN 12.7 g/dL (12.5-16.3); LYMPHOCYTES # (AUTO) 0.6 K/uL (0.8-4.8); LYMPHOCYTES % (AUTO) 4.9 % (20.5-51.5); MEAN CORPUSCULAR HEMOGLOBIN 33.4 uug (23.8-33.4); MEAN CORPUSCULAR HGB CONC 34 g/dL (32.5-36.3); MEAN CORPUSCULAR VOLUME 99.6 fL (73.0-96.2); MONOCYTES # (AUTO) 0.3 K/uL (0.1-1.30); MONOCYTES % (AUTO) 2.9 % (0.0-11.0); NEUTROPHILS # (AUTO) 10.3 K/uL (1.8-8.9); NEUTROPHILS % (AUTO) 91.9 % (38.5-71.5); PLATELET COUNT (AUTO) 231 K/uL (152-348); RED BLOOD CELL COUNT(AUTO) 3.81 MIL/uL (4.06-5.63); RED CELL DISTRIBUTION WIDTH 15.9 % (12.1-16.2); WHITE BLOOD COUNT (AUTO) 11.2 K/uL (3.6-10.2)
[2024-05-18 07:19] LABS: DIFFERENTIAL COMMENT 1
[2024-05-18 07:23] LABS: CALCIUM 8.3 mg/dL (8.5-10.1); CARBON DIOXIDE 30 mmol/L (21-32); CHLORIDE 105 mmol/L (98-107); CREATININE 1.2 mg/dL (0.6-1.3); GLUCOSE 112 mg/dL (74-106); MAGNESIUM 2.1 mg/dL (1.8-2.4); PHOSPHOROUS 2.8 mg/dL (2.5-4.9); POTASSIUM 4.3 mmol/L (3.5-5.1); SODIUM SERUM 140 mmol/L (136-145); UREA NITROGEN, BLOOD 41 mg/dL (7-18)
[2024-05-18] MEDS: ASPIRIN 81 MG TAB.CHEW PO SCH (09:28)
[2024-05-18] MEDS: HYDROCODONE/APAP 5-325MG TABLET PO PRN (19:36)
[2024-05-19] VITALS (8 sets, daily range): BP systolic 107–115; BP diastolic 51–60; TEMP 97.7–98.4; O2SAT 94–100
[2024-05-19] MEDS ORDERED: ONDA-104 PO (23:09)
[2024-05-19] MEDS ORDERED: PANT40TA49 PO (23:09)
[2024-05-19] MEDS ORDERED: DEXT50DI8 IV (23:09)
[2024-05-19] MEDS ORDERED: CLON0.5T4 PO (23:09)
[2024-05-19] MEDS ORDERED: DEXA4VIA19 IV (23:09)
[2024-05-19] MEDS ORDERED: ACET-3117 PO (23:09)
[2024-05-19] MEDS ORDERED: BENZ-13 PO (23:09)
[2024-05-19] MEDS ORDERED: INSU100V28 SQ (23:09)
[2024-05-19] MEDS ORDERED: ALBU1.25 NEB (23:09)
[2024-05-19] MEDS ORDERED: ASPI81TA31 PO (23:09)
[2024-05-19] MEDS ORDERED: GUAI100S34 PO (23:09)
[2024-05-19] MEDS ORDERED: BLOO-668 VI (23:09)
[2024-05-19] MEDS ORDERED: IPRA0.2S48 NEB (23:09)
== END 2024-05-19 19:23 | DRG 177 ==
LOC: ER 18:31 → CCU 21:48 → TELE3 05-08 07:25 → MEDSURG3 05-16 11:07
PROC: XW033E5 Introduction of Remdesivir Anti-infective into Peripheral Vein, Percutaneous Approach, New Technology Group 5 (ICD-10-PCS; principal; 2024-05-11)
PROC: 05HB33Z Insertion of Infusion Device into Right Basilic Vein, Percutaneous Approach (ICD-10-PCS; 2024-05-15)
DX: U07.1 COVID-19 (principal); I21.A1 Myocardial infarction type 2; J12.82 Pneumonia due to coronavirus disease 2019; J96.01 Acute respiratory failure with hypoxia; J15.9 Unspecified bacterial pneumonia; I50.33 Acute on chronic diastolic (congestive) heart failure; N17.0 Acute kidney failure with tubular necrosis; R04.2 Hemoptysis; I13.0 Hypertensive heart and chronic kidney disease with heart failure and stage 1 through stage 4 chronic kidney disease, or unspecified chronic kidney disease; E44.0 Moderate protein-calorie malnutrition; E87.0 Hyperosmolality and hypernatremia; J98.11 Atelectasis; E11.22 Type 2 diabetes mellitus with diabetic chronic kidney disease; N18.9 Chronic kidney disease, unspecified; E03.9 Hypothyroidism, unspecified; N40.0 Benign prostatic hyperplasia without lower urinary tract symptoms; K21.9 Gastro-esophageal reflux disease without esophagitis; I48.0 Paroxysmal atrial fibrillation; I44.7 Left bundle-branch block, unspecified; I27.20 Pulmonary hypertension, unspecified; I25.10 Atherosclerotic heart disease of native coronary artery without angina pectoris; F32.A Depression, unspecified; E88.09 Other disorders of plasma-protein metabolism, not elsewhere classified; E11.65 Type 2 diabetes mellitus with hyperglycemia; E11.40 Type 2 diabetes mellitus with diabetic neuropathy, unspecified; E11.649 Type 2 diabetes mellitus with hypoglycemia without coma; D53.9 Nutritional anemia, unspecified; E86.1 Hypovolemia; M10.9 Gout, unspecified; Z79.84 Long term (current) use of oral hypoglycemic drugs; Z79.890 Hormone replacement therapy; Z79.01 Long term (current) use of anticoagulants; I08.0 Rheumatic disorders of both mitral and aortic valves
CPT/HCPCS: 36415; 36600; 70030-TC; 71045; 71250; 76604; 76770; 78580; 83605; 83735; 83970; 84100; 84155; 84165; 84300; 84443; 84484; 85025; 85610; 85730; 86140; 87040; 93307; 93880; 94640; 94664; 94760; A4606; A6213; A9540; G0378; J0248; J0696; J1100; J1650; J1815; J1940; J1956; J2470; J2919; J3490; J3590; J7040

== ENCOUNTER 2024-05-19 13:45 | Inpatient (IN) | payer MEDICARE, BC ==
[~2024-05-19] VITALS: Ht 172.7 cm; Wt 74.8 kg
[~2024-05-19 13:45] MED LIST: ALLO300T2 PO; AMIO200T5 PO; AMLO5TAB4 PO; ESCI20TA PO; FENO145T21 PO; GLIP5TAB13 PO; LEVO200T9 PO; LIDO30AD10 TD; METH10TA4 PO; PREG50CA PO; TAMS-3 PO; [UNRECOGNIZED DRUG - CODE] PO
[2024-05-19] MEDS: HYDROCODONE/APAP 5-325MG TABLET PO PRN (22:50)
[2024-05-19] MEDS ORDERED: BENZ-13 PO (23:09)
[2024-05-19] MEDS ORDERED: DEXA4VIA19 IV (23:09)
[2024-05-19] MEDS ORDERED: ONDA-104 PO (23:09)
[2024-05-19] MEDS ORDERED: IPRA0.2S48 NEB (23:09)
[2024-05-19] MEDS ORDERED: PANT40TA49 PO (23:09)
[2024-05-19] MEDS ORDERED: ALBU1.25 NEB (23:09)
[2024-05-19] MEDS ORDERED: INSU100V28 SQ (23:09)
[2024-05-19] MEDS ORDERED: CLON0.5T4 PO (23:09)
[2024-05-19] MEDS ORDERED: ACET-3117 PO (23:09)
[2024-05-19] MEDS ORDERED: DEXT50DI8 IV (23:09)
[2024-05-19] MEDS ORDERED: GUAI100S34 PO (23:09)
[2024-05-19] MEDS ORDERED: ASPI81TA31 PO (23:09)
[2024-05-19] MEDS ORDERED: BLOO-668 VI (23:09)
[2024-05-20 00:56] VITALS: BP 129/41; TEMP 98.2; O2SAT 96
[2024-05-20] MEDS ORDERED: GUAIFENESIN SUGAR FREE 100 MG/5 ML UDC PO PRN (01:45)
[2024-05-20] MEDS ORDERED: ONDANSETRON HCL 4 MG TABLET PO PRN (01:45)
[2024-05-20] MEDS ORDERED: REMEDY ESSENTIAL ZINC PASTE 113 GM TOP PRN (02:15)
[2024-05-20] MEDS ORDERED: DEXTROSE 50% 50 ML DISP.SYRIN IV PRN (02:15)
[2024-05-20] MEDS ORDERED: METHYLPHENIDATE HCL 10 MG TABLET PO PRN (02:30)
[2024-05-20] MEDS ORDERED: ACETAMINOPHEN 325 MG TABLET PO PRN (02:30)
[2024-05-20] MEDS: BENZONATATE 100 MG CAPSULE PO SCH (06:06)
[2024-05-20] MEDS: LEVOTHYROXINE SODIUM 200 MCG TABLET PO SCH (06:06)
[2024-05-20] MEDS: BLOOD SUGAR DIAGNOSTIC 1 EACH STRIP VI SCH (06:22)
[2024-05-20 06:56] VITALS: BP 117/69; TEMP 97.5; O2SAT 99
[2024-05-20 08:30] VITALS: O2SAT 98
[2024-05-20] MEDS: AMIODARONE HCL 200 MG TABLET PO SCH (09:00)
[2024-05-20] MEDS: PREGABALIN 25 MG CAPSULE PO SCH (09:09)
[2024-05-20] MEDS: ALLOPURINOL 300 MG TABLET PO SCH (09:11)
[2024-05-20] MEDS: FENOFIBRATE NANOCRYSTALLIZED 145 MG TABLET PO SCH (09:11)
[2024-05-20] MEDS: AMLODIPINE 5 MG TABLET PO SCH (09:11)
[2024-05-20] MEDS: ASPIRIN 81 MG TAB.CHEW PO SCH (09:11)
[2024-05-20] MEDS: LIDOCAINE 5% PATCH TD SCH (09:15)
[2024-05-20] MEDS: ESCITALOPRAM OXALATE 10 MG TABLET PO SCH (09:21)
[2024-05-20] MEDS ORDERED: MINERAL OIL/PETROLATUM,WHITE 57 GM TUBE TOP PRN (12:00)
[2024-05-20] MEDS: INSULIN REGULAR, HUMAN 1000 UNIT/10 ML VIAL SQ PRN (12:16)
[2024-05-20 16:25] VITALS: BP 129/58; TEMP 97.7; O2SAT 97
[2024-05-20] MEDS: CLOTRIMAZOLE 1% CREAM 30 GM TUBE TOP SCH (17:16)
[2024-05-20 20:06] VITALS: BP 123/55; TEMP 98.1; O2SAT 96
[2024-05-20] MEDS: TAMSULOSIN HCL 0.4 MG CAP.SR.24H PO SCH (20:23)
[2024-05-21 04:29] VITALS: O2SAT 96
[2024-05-21 06:00] VITALS: BP 110/69; TEMP 98; O2SAT 96
[2024-05-21 09:40] VITALS: O2SAT 96
[2024-05-21] MEDS: IPRATROPIUM BROMIDE 0.5 MG/2.5 ML NEBU NEB PRN (12:15)
[2024-05-21] MEDS: ALBUTEROL SULFATE 1.25 MG/3 ML NEBU NEB PRN (12:15)
[2024-05-21 15:08] VITALS: BP 101/61; TEMP 98.2; O2SAT 98
[2024-05-21] MEDS: GLUCERNA SHAKE 237 ML CAN PO SCH (17:00)
[2024-05-21 19:52] VITALS: BP 105/53; TEMP 98.2; O2SAT 96
[2024-05-21] MEDS: CLONAZEPAM 0.5 MG TABLET PO PRN (22:51)
[2024-05-22 06:12] VITALS: BP 138/56; TEMP 97.9; O2SAT 95
[2024-05-22 06:31] LABS: BASOPHILS % (AUTO) 0.4 % (0.0-2.0); EOSINOPHILS % (AUTO) 0.5 % (0.0-7.0); HEMATOCRIT 39.9 % (36.7-47.1); HEMOGLOBIN 13.2 g/dL (12.5-16.3); LYMPHOCYTES # (AUTO) 0.8 K/uL (0.8-4.8); LYMPHOCYTES % (AUTO) 12.4 % (20.5-51.5); MEAN CORPUSCULAR HEMOGLOBIN 32.7 uug (23.8-33.4); MEAN CORPUSCULAR HGB CONC 33 g/dL (32.5-36.3); MEAN CORPUSCULAR VOLUME 99.1 fL (73.0-96.2); MONOCYTES # (AUTO) 0.4 K/uL (0.1-1.30); MONOCYTES % (AUTO) 5.5 % (0.0-11.0); NEUTROPHILS # (AUTO) 5.5 K/uL (1.8-8.9); NEUTROPHILS % (AUTO) 81.2 % (38.5-71.5); PLATELET COUNT (AUTO) 158 K/uL (152-348); RED BLOOD CELL COUNT(AUTO) 4.03 MIL/uL (4.06-5.63); RED CELL DISTRIBUTION WIDTH 15.7 % (12.1-16.2); WHITE BLOOD COUNT (AUTO) 6.7 K/uL (3.6-10.2)
[2024-05-22 06:44] LABS: DIFFERENTIAL COMMENT 1
[2024-05-22 06:50] LABS: ALANINE AMINOTRANSFERASE 33 U/L (16-63); ALBUMIN 2.1 g/dL (3.4-5.0); ALKALINE PHOSPHATASE 59 U/L (50-136); ASPARTATE AMINOTRANSFERASE 19 U/L (15-37); BILIRUBIN,TOTAL 0.9 mg/dL (0.2-1.0); CALCIUM 8.5 mg/dL (8.5-10.1); CARBON DIOXIDE 29 mmol/L (21-32); CHLORIDE 106 mmol/L (98-107); CREATININE 1.3 mg/dL (0.6-1.3); GLUCOSE 81 mg/dL (74-106); SODIUM SERUM 141 mmol/L (136-145); TOTAL PROTEIN, SERUM 5.1 g/dL (6.4-8.2); UREA NITROGEN, BLOOD 39 mg/dL (7-18)
[2024-05-22 13:24] LABS: BAND % (MANUAL) 1 % (0-10); LYMPHOCYTES % (MANUAL) 17 % (20-40); MONOCYTES % (MANUAL) 5 % (2-10); NEUTROPHILS % (MANUAL) 77 % (42-75); PLATELET ESTIMATE ADEQUATE
[2024-05-22 15:24] VITALS: BP 117/55; TEMP 98; O2SAT 98
[2024-05-22 16:41] VITALS: O2SAT 98
[2024-05-22 18:20] VITALS: O2SAT 100
[2024-05-22 18:21] VITALS: O2SAT 100
[2024-05-22 20:35] VITALS: BP 146/56; TEMP 98.1; O2SAT 96
[2024-05-22] MEDS ORDERED: GUAIFENESIN/DEXTROMETHORPHAN 5 ML UDC PO PRN (23:15)
[2024-05-23 04:23] VITALS: O2SAT 96
[2024-05-23 05:52] VITALS: BP 126/57; TEMP 97.6
[2024-05-23] MEDS: LEVOTHYROXINE SODIUM 175 MCG TABLET PO SCH (06:07)
[2024-05-23] MEDS: ALLOPURINOL 300 MG TABLET PO SCH (08:25)
[2024-05-23] MEDS: APIXABAN 2.5 MG TABLET PO SCH (08:33)
[2024-05-23] MEDS: PROTEIN SUPPLEMENT (PROSTAT) 30 ML LIQUID PO SCH (08:44)
[2024-05-23 15:52] VITALS: BP 120/58; TEMP 98.4; O2SAT 96
[2024-05-23 16:49] VITALS: O2SAT 96
[2024-05-23 21:20] VITALS: BP 111/69; TEMP 98.2; O2SAT 96
[2024-05-24] VITALS (7 sets, daily range): BP systolic 108–127; BP diastolic 55–69; TEMP 97.6–98.9; O2SAT 96–100
[2024-05-24] MEDS: PANTOPRAZOLE SODIUM 40 MG TABLET.DR PO SCH (06:15)
[2024-05-24] MEDS: AMIODARONE HCL 200 MG TABLET PO SCH (08:25)
[2024-05-24] MEDS: ASPIRIN EC 81 MG TABLET.DR PO SCH (10:24)
[2024-05-25 01:22] VITALS: O2SAT 98
[2024-05-25 04:31] VITALS: BP 116/52; TEMP 98.3; O2SAT 95
[2024-05-25 05:29] VITALS: TEMP 98
[2024-05-25 06:14] VITALS: TEMP 98
[2024-05-25 15:20] VITALS: TEMP 97.1
[2024-05-25 20:00] VITALS: BP 131/65; TEMP 98.2; O2SAT 95
[2024-05-26 04:23] VITALS: O2SAT 98
[2024-05-26 06:00] VITALS: BP 108/46; TEMP 98.6; O2SAT 95
[2024-05-26 20:00] VITALS: BP 125/64; TEMP 98.2; O2SAT 97
[2024-05-27 03:20] VITALS: O2SAT 97
[2024-05-27 06:00] VITALS: BP 125/62; TEMP 97.9; O2SAT 99
[2024-05-27 16:15] VITALS: BP 119/60; TEMP 98.7; O2SAT 96
[2024-05-27 16:46] VITALS: O2SAT 96
[2024-05-27 20:51] VITALS: BP 122/61; TEMP 97.8; O2SAT 95
[2024-05-28 03:25] VITALS: O2SAT 95
[2024-05-28 07:17] VITALS: BP 141/70; TEMP 97.9; O2SAT 98
[2024-05-28 09:13] LABS: BASOPHILS % (AUTO) 0.4 % (0.0-2.0); EOSINOPHILS # (AUTO) 0.1 K/uL (0.0-0.7); EOSINOPHILS % (AUTO) 2.9 % (0.0-7.0); HEMATOCRIT 34.5 % (36.7-47.1); HEMOGLOBIN 11.6 g/dL (12.5-16.3); LYMPHOCYTES # (AUTO) 0.9 K/uL (0.8-4.8); LYMPHOCYTES % (AUTO) 22.4 % (20.5-51.5); MEAN CORPUSCULAR HEMOGLOBIN 33.1 uug (23.8-33.4); MEAN CORPUSCULAR HGB CONC 34 g/dL (32.5-36.3); MEAN CORPUSCULAR VOLUME 98.2 fL (73.0-96.2); MONOCYTES # (AUTO) 0.2 K/uL (0.1-1.30); MONOCYTES % (AUTO) 5.8 % (0.0-11.0); NEUTROPHILS # (AUTO) 2.7 K/uL (1.8-8.9); NEUTROPHILS % (AUTO) 68.5 % (38.5-71.5); PLATELET COUNT (AUTO) 147 K/uL (152-348); RED BLOOD CELL COUNT(AUTO) 3.51 MIL/uL (4.06-5.63); RED CELL DISTRIBUTION WIDTH 15.9 % (12.1-16.2)
[2024-05-28 09:17] LABS: DIFFERENTIAL COMMENT 1
[2024-05-28 09:30] LABS: CALCIUM 8.1 mg/dL (8.5-10.1); CARBON DIOXIDE 29 mmol/L (21-32); CHLORIDE 108 mmol/L (98-107); CREATININE 1.2 mg/dL (0.6-1.3); GLUCOSE 118 mg/dL (74-106); MAGNESIUM 1.9 mg/dL (1.8-2.4); PHOSPHOROUS 2.5 mg/dL (2.5-4.9); POTASSIUM 3.8 mmol/L (3.5-5.1); SODIUM SERUM 144 mmol/L (136-145); UREA NITROGEN, BLOOD 17 mg/dL (7-18)
[2024-05-28 16:13] VITALS: BP 122/61; TEMP 98.2; O2SAT 95
[2024-05-28 20:00] VITALS: BP 153/63; TEMP 98.6; O2SAT 97
[2024-05-29 00:53] VITALS: O2SAT 97
[2024-05-29 05:57] VITALS: BP 129/68; TEMP 98.4; O2SAT 92
[2024-05-29 16:10] VITALS: BP 118/57; TEMP 98.4; O2SAT 96
[2024-05-29 20:03] VITALS: BP 117/64; TEMP 98.2; O2SAT 97
[2024-05-30 06:20] VITALS: BP 151/73; TEMP 98.1; O2SAT 97
[2024-05-30 16:23] VITALS: BP 116/58; TEMP 98.4; O2SAT 95
[2024-05-30 20:35] VITALS: O2SAT 95
[2024-05-30 21:01] VITALS: BP 110/52; TEMP 98.5; O2SAT 96
[2024-05-31 07:14] VITALS: BP 132/68; TEMP 98.3; O2SAT 96
[2024-05-31 16:10] VITALS: BP 130/68; TEMP 97.7; O2SAT 100
[2024-05-31 20:00] VITALS: BP 129/64; TEMP 97.8; O2SAT 96
[2024-06-01 05:00] VITALS: BP 145/73; TEMP 98.2; O2SAT 96
[2024-06-01 07:27] LABS: BASOPHILS % (AUTO) 0.5 % (0.0-2.0); EOSINOPHILS # (AUTO) 0.1 K/uL (0.0-0.7); EOSINOPHILS % (AUTO) 3.5 % (0.0-7.0); HEMOGLOBIN 11.3 g/dL (12.5-16.3); LYMPHOCYTES # (AUTO) 1.4 K/uL (0.8-4.8); LYMPHOCYTES % (AUTO) 32.7 % (20.5-51.5); MEAN CORPUSCULAR HEMOGLOBIN 33.2 uug (23.8-33.4); MEAN CORPUSCULAR HGB CONC 34 g/dL (32.5-36.3); MEAN CORPUSCULAR VOLUME 97.2 fL (73.0-96.2); MONOCYTES # (AUTO) 0.3 K/uL (0.1-1.30); MONOCYTES % (AUTO) 6.3 % (0.0-11.0); NEUTROPHILS # (AUTO) 2.4 K/uL (1.8-8.9); PLATELET COUNT (AUTO) 192 K/uL (152-348); RED BLOOD CELL COUNT(AUTO) 3.39 MIL/uL (4.06-5.63); WHITE BLOOD COUNT (AUTO) 4.2 K/uL (3.6-10.2)
[2024-06-01 07:28] LABS: DIFFERENTIAL COMMENT 1
[2024-06-01 07:45] LABS: CARBON DIOXIDE 28 mmol/L (21-32); CHLORIDE 110 mmol/L (98-107); CREATININE 1.1 mg/dL (0.6-1.3); GLUCOSE 112 mg/dL (74-106); PHOSPHOROUS 2.9 mg/dL (2.5-4.9); POTASSIUM 3.9 mmol/L (3.5-5.1); SODIUM SERUM 146 mmol/L (136-145); UREA NITROGEN, BLOOD 15 mg/dL (7-18)
[2024-06-01 13:53] LABS: *BILIRUBIN,URIN NEGATIVE (NEGATIVE); *BLOOD, URINE 3+ (NEGATIVE); *CLARITY,URINE CLOUDY (CLEAR); *COLOR,URINE RED (YELLOW); *KETONES,URINE NEGATIVE (NEGATIVE); *PROTEIN,URINE 1+ (NEGATIVE); LEUKOCYTE ESTERASE ,URINE NEGATIVE (NEGATIVE); NITRITE, URINE NEGATIVE (NEGATIVE); UGLUCOSE NEGATIVE (NEGATIVE)
[2024-06-01 16:00] VITALS: BP 100/57; TEMP 97.4; O2SAT 96
[2024-06-01 16:38] LABS: WBC,URINE 0-3 /HPF (0-3)
[2024-06-01 21:20] VITALS: BP 123/65; TEMP 97.8; O2SAT 95
[2024-06-02 06:45] VITALS: BP 139/66; TEMP 98.3; O2SAT 93
[2024-06-02 20:03] VITALS: BP 113/65; TEMP 98.1; O2SAT 95
[2024-06-03] MEDS: MORPHINE SULFATE 2 MG/1 ML DISP.SYRIN IM ONE (00:11)
[2024-06-03] MEDS: DOCUSATE SODIUM 100 MG CAPSULE PO SCH (00:12)
[2024-06-03] MEDS: MORPHINE SULFATE 4 MG/1 ML DISP.SYRIN IM ONE ×2 (07:45→12:10)
[2024-06-03] MEDS: PAROXETINE HCL 20 MG TABLET PO SCH (08:36)
[2024-06-03] MEDS: MIRALAX 17 GM POWD.PACK PO SCH (08:49)
[2024-06-03 08:50] LABS: BASOPHILS % (AUTO) 0.4 % (0.0-2.0); EOSINOPHILS # (AUTO) 0.2 K/uL (0.0-0.7); EOSINOPHILS % (AUTO) 3.3 % (0.0-7.0); HEMATOCRIT 33.8 % (36.7-47.1); HEMOGLOBIN 11.5 g/dL (12.5-16.3); LYMPHOCYTES # (AUTO) 1.7 K/uL (0.8-4.8); LYMPHOCYTES % (AUTO) 36.7 % (20.5-51.5); MEAN CORPUSCULAR HEMOGLOBIN 33.3 uug (23.8-33.4); MEAN CORPUSCULAR HGB CONC 34 g/dL (32.5-36.3); MEAN CORPUSCULAR VOLUME 98.4 fL (73.0-96.2); MONOCYTES # (AUTO) 0.3 K/uL (0.1-1.30); NEUTROPHILS # (AUTO) 2.5 K/uL (1.8-8.9); NEUTROPHILS % (AUTO) 53.6 % (38.5-71.5); PLATELET COUNT (AUTO) 235 K/uL (152-348); RED BLOOD CELL COUNT(AUTO) 3.44 MIL/uL (4.06-5.63); RED CELL DISTRIBUTION WIDTH 16.1 % (12.1-16.2); WHITE BLOOD COUNT (AUTO) 4.7 K/uL (3.6-10.2)
[2024-06-03 08:53] LABS: DIFFERENTIAL COMMENT 1
[2024-06-03 08:55] VITALS: BP 117/67
[2024-06-03 09:09] LABS: CALCIUM 8.2 mg/dL (8.5-10.1); CARBON DIOXIDE 27 mmol/L (21-32); CHLORIDE 111 mmol/L (98-107); CREATININE 1.2 mg/dL (0.6-1.3); GLUCOSE 120 mg/dL (74-106); MAGNESIUM 1.9 mg/dL (1.8-2.4); PHOSPHOROUS 2.7 mg/dL (2.5-4.9); POTASSIUM 3.9 mmol/L (3.5-5.1); SODIUM SERUM 146 mmol/L (136-145); UREA NITROGEN, BLOOD 15 mg/dL (7-18)
[2024-06-03] MEDS: LIDOCAINE 2% (GLYDO= UROJET) 10 ML JELLY MM ONE (13:15)
[2024-06-03 16:00] VITALS: BP 118/62; TEMP 98.2; O2SAT 91
[2024-06-04 00:20] VITALS: BP 120/63; TEMP 98; O2SAT 92
[2024-06-04 06:44] VITALS: BP 118/63; TEMP 98; O2SAT 95
[2024-06-04 07:47] VITALS: BP 134/68; TEMP 98.2; O2SAT 96
[2024-06-04 09:51] LABS: BASOPHILS % (AUTO) 0.4 % (0.0-2.0); EOSINOPHILS # (AUTO) 0.2 K/uL (0.0-0.7); EOSINOPHILS % (AUTO) 3.2 % (0.0-7.0); HEMATOCRIT 32.6 % (36.7-47.1); HEMOGLOBIN 11.1 g/dL (12.5-16.3); LYMPHOCYTES # (AUTO) 1.5 K/uL (0.8-4.8); LYMPHOCYTES % (AUTO) 29.1 % (20.5-51.5); MEAN CORPUSCULAR HGB CONC 34 g/dL (32.5-36.3); MEAN CORPUSCULAR VOLUME 97.3 fL (73.0-96.2); MONOCYTES # (AUTO) 0.3 K/uL (0.1-1.30); MONOCYTES % (AUTO) 5.7 % (0.0-11.0); NEUTROPHILS # (AUTO) 3.1 K/uL (1.8-8.9); NEUTROPHILS % (AUTO) 61.6 % (38.5-71.5); PLATELET COUNT (AUTO) 232 K/uL (152-348); RED BLOOD CELL COUNT(AUTO) 3.35 MIL/uL (4.06-5.63); RED CELL DISTRIBUTION WIDTH 16.1 % (12.1-16.2); WHITE BLOOD COUNT (AUTO) 5.1 K/uL (3.6-10.2)
[2024-06-04 11:18] LABS: DIFFERENTIAL COMMENT 1
[2024-06-04 13:00] VITALS: O2SAT 94
[2024-06-04 16:07] VITALS: BP 112/57; TEMP 98.6; O2SAT 96
== END 2024-06-04 15:50 | DRG 189 ==
PROVIDERS: ADMIT Physical Medicine & Rehabilitation Pain Medicine; ATTEND Physical Medicine & Rehabilitation Pain Medicine
DX: J96.01 Acute respiratory failure with hypoxia (principal); U07.1 COVID-19; J12.82 Pneumonia due to coronavirus disease 2019; I50.33 Acute on chronic diastolic (congestive) heart failure; E43 Unspecified severe protein-calorie malnutrition; I21.A1 Myocardial infarction type 2; J15.9 Unspecified bacterial pneumonia; N17.0 Acute kidney failure with tubular necrosis; D68.59 Other primary thrombophilia; E87.0 Hyperosmolality and hypernatremia; F33.2 Major depressive disorder, recurrent severe without psychotic features; I13.0 Hypertensive heart and chronic kidney disease with heart failure and stage 1 through stage 4 chronic kidney disease, or unspecified chronic kidney disease; E03.9 Hypothyroidism, unspecified; E11.40 Type 2 diabetes mellitus with diabetic neuropathy, unspecified; I48.0 Paroxysmal atrial fibrillation; I27.20 Pulmonary hypertension, unspecified; K21.9 Gastro-esophageal reflux disease without esophagitis; N40.0 Benign prostatic hyperplasia without lower urinary tract symptoms; N18.2 Chronic kidney disease, stage 2 (mild); L89.152 Pressure ulcer of sacral region, stage 2; D64.9 Anemia, unspecified; E11.22 Type 2 diabetes mellitus with diabetic chronic kidney disease; E78.1 Pure hyperglyceridemia; E86.1 Hypovolemia; I25.10 Atherosclerotic heart disease of native coronary artery without angina pectoris; K56.41 Fecal impaction; M10.9 Gout, unspecified; R31.0 Gross hematuria; Z79.899 Other long term (current) drug therapy; F41.9 Anxiety disorder, unspecified; I34.0 Nonrheumatic mitral (valve) insufficiency; Z68.25 Body mass index [BMI] 25.0-25.9, adult
CPT/HCPCS: 36415; 70030-TC; 71045; 71101; 74018; 83735; 84100; 85025; 94640; 94760; 97535-GO-CO; J1815; J2270; J3590